=== PATIENT | male | born 1965 | race Caucasian/White ===

== ENCOUNTER → 2018-08-02 | Day surgery (SDC) | payer OTHER ==
[2018-07-31 11:03] LABS: BASOPHILS % 0.3 % (0.0-1.0); EOSINOPHILS # (AUTO) 0.1 (0.0-0.4); EOSINOPHILS % 1.2 % (0.0-6.0); HEMATOCRIT 53.6 % (38.2-49.6); HEMOGLOBIN 18.8 g/dL (14.0-18.0); LYMPHOCYTES % 9.7 % (18.0-39.1); MEAN CORPUSCULAR HEMOGLOBIN 32.1 pg (28-32); MEAN CORPUSCULAR HGB CONC 35.1 g/dL (31-35); MEAN CORPUSCULAR VOLUME 91.6 fL (81-99); MONOCYTES % 9.8 % (4.4-11.3); NEUTROPHILS # (AUTO) 7.7 (2.1-6.9); NEUTROPHILS % 78.8 % (38.7-80.0); PLATELET COUNT 186 x10e3/uL (140-360); RED BLOOD COUNT 5.85 x10e6/uL (4.3-5.7); RED CELL DISTRIBUTION WIDTH 12.8 % (11.7-14.4)
[2018-07-31 11:28] LABS: ALBUMIN 4.5 g/dL (3.5-5.0); ALBUMIN/GLOBULIN RATIO 1.3 (0.8-2.0); CALCIUM 10.3 mg/dL (8.4-10.2); CREATININE, SERUM 1.34 mg/dL (0.72-1.25)
[2018-08-02] VITALS (13 sets, daily range): BP systolic 99–146; BP diastolic 55–88
[~2018-08-02] VITALS: Ht 188 cm; Wt 97.5 kg
[~2018-08-02] MED LIST: ACETAMINOPHEN 325 MG TAB ONE; ACETAMINOPHEN 325 MG TAB PO ONE; ASPIR 8181 MG PO; ASPIRIN 325 MG TAB ONE; BIVALRIUDIN 250 MG/VIAL VIAL IV ONE; EPTIFIBATIDE 10 ML ONE; FENTANYL CITRATE/PF 100MCG/2 ML INJ ONE; HEPARIN SOD/SOD CHLORIDE 2,000 ML ONE; IOPAMIDOL 370 MG/ML 200 ML INFUS..BTL INJ ONE; LIDOCAINE HCL 2% LOCAL 20 ML VIAL ONE; MEPERIDINE HCL INJ 50 MG/ML INJ ONE; MIDAZOLAM HCL 2 MG/2 ML VIAL ONE; PROMETHAZINE HCL (IM) 25 MG/ML VIAL ONE; SODIUM CHLORIDE 0.9% 1000ML 1,000 ML ONE; SODIUM CHLORIDE 0.9% 50ML 50 ML ONE; TICAGRELOR 90 MG TABLET ONE; VERAPAMIL HCL 2.5 MG/ML 2 ML VIAL ONE
--- OUTSIDE RECORDS SUMMARY | 2018-08-02 06:16 | XMS REPORT | Clinical Summary ---
Author Author [facility] Address Unknown Phone Unavailable Care Team Providers Care Green Plumber Name Role Phone Asked, No Pcp PCP Unavailable Allergies Comments Active Allergy Reactions Severity Noted Date Ciprofloxacin GI 06/09/2017 Intolerance Medications End Date Status Medication Sig Dispensed Refills Start Date Active hydroCHLOROthiazide Take 25 mg by 0 (HYDRODIURIL) 25 MG mouth daily. tablet Active buPROPion XL (WELLBUTRIN 0 XL) 150 MG 24 hr tablet 9 Active testosterone cypionate INJECT 1 ML 3 (DEPOTESTOTERONE IN THE MUSCLE 8 CYPIONATE) 200 mg/mL ONCE EVERY 2 injection WEEKS Active Problems Not on file Encounters Care Team Description Date Type Specialty Clay Mccarthy MD Patellofemoral chondrosis of right knee (Primary Dx); Right knee pain, unspecified chronicity 04/03/2018 Office Visit Orthopedic Surgery Clay Mccarthy MD Biceps tendonitis on right (Primary Dx) 08/15/2017 Office Visit Orthopedic Surgery Clay Mccarthy MD Biceps tendonitis on right (Primary Dx) 08/02/2017 Office Visit Orthopedic Surgery after 08/01/2017 Social History Date Tobacco Use Types Packs/Day Years Used Never Smoker Alcohol Use Drinks/Week oz/Week Comments Yes maybe twice a month Sex Assigned at Date Recorded Not on file Industry Job Start Date Occupation Not on file Not on file Not on file Travel End Travel History Travel Start No recent travel history available. Last Filed Vital Signs Time Taken Vital Sign Reading - Blood Pressure - - Pulse - - Temperature - - Respiratory Rate - - Oxygen Saturation - - Inhaled Oxygen - Concentration 04/03/2018 3:37 PM [employer] Weight 97.5 kg (215 lb) 04/03/2018 3:37 PM [employer] Height 188 cm (6' 2") 04/03/2018 3:37 PM [employer] Body Mass Index 27.6 Plan of Treatment Health Maintenance Due Date Last Done Comments COLON CANCER SCREENING 12/28/2015 SHINGLES VACCINES (#1) 12/28/2015 INFLUENZA VACCINE 10/25/2018 Procedures Comments Procedure Name Priority Date/Time Associated Diagnosis XR KNEE 4+ VW RIGHT Routine 04/03/2018 Right knee pain, 3:50 PM [employer] unspecified chronicity CHG ULTRASONIC GUIDANCE, Routine 08/15/2017 Biceps tendonitis on INTRAOPERATIVE 3:00 PM CDT right ID INJECT TENDON Routine 08/15/2017 Biceps tendonitis on SHEATH/LIGAMENT 3:00 PM CDT right after 08/01/2017 Results * XR Knee 4+ Vw Right (04/03/2018 3:50 PM [employer]) Narrative Performed At [facility] Four views (standing bilateral weightbearing AP and 45 degree flexion PA, Merchant, and lateral views) of the right knee are obtained and reviewed today. The alignment appears normal. There is no significant narrowing or other degenerative change of the tibiofemoral or patellofemoral joint spaces.No fractures or loose bodies are seen. No abnormal soft tissue calcifications are seen. Performing Organization Address [facility]/State[facility] Phone Number [facility] [phone] [place] [address] * Injection tendon or ligament (08/15/2017 3:00 PM CDT) Narrative Performed At Clay Mccarthy MD 08/22/2017 12:13 PM Injection tendon or ligament Date/Time: 08/22/2017 12:10 PM Performed by: CLAY MCCARTHY Authorized by: CLAY MCCARTHY Consent: Consent obtained:Verbal Consent given by:Patient Risks discussed:Bleeding, infection, nerve damage and pain Alternatives discussed:No treatment and delayed treatment Pre-procedure details: Preparation: Patient was prepped and draped in usual sterile fashion Procedure details: Type of injection:Tendon sheath Location:Shoulder Shoulder location:R bicepsUltrasound Guided? yes Right side: Needle size: 27 G Right shoulder medications administered: 40 mg methylPREDNISolone acetate 40 mg/mL; 2 mL lidocaine 10 mg/mL (1 %) Post-procedure details: Patient tolerance of procedure:Tolerated well, no immediate complications after 08/01/2017 Insurance Payer Benefit Subscriber ID Type Phone Address Plan / Group [employer]IG[employer] CIGNA OPEN xxxxxxxxx HMO ACCESS/NET WORK [id number] [place] [address] ([place]) [place] [address]
--- NOTE | 2018-08-02 13:26 | NUR ---
1326pm Received s/p [facility] DR Duffy, RCA stent, Rt TR band approach.Received with oozing TR band technologist Bi and Sultana at bedside Ooze controlled , Received report from Andrew Mehta States Angiomax off. Left iv infusing NS well with Dial-a-flow at 100cchr NO s/s infiltration .TR band has 15cc air and intact. Abdomen soft and non tender denies necessity to defecate or urinate Bilateral femoral pulses present w/o s/s infiltration. HOB elevated and served diet Family at bedside reviewed POC and Md talked to family will initiate titration at 1430pm ds/rn
--- NOTE | 2018-08-02 14:30 | NUR ---
1430pm (15cc tr band) -2cc positive, 13cc No gross signs pain,pallor,pressure or dysrhythmia. 1445pm additional -2cc ,positive,11cc no oozing or or hematoma noted Family noted at bedside. ds/rn
--- NOTE | 2018-08-02 14:34 | Operative Report ---
DATE OF PROCEDURE: 08/02/2018 SURGEON: Orlin Duffy MD INDICATION: Coronary artery disease, abnormal stress test. PROCEDURES PERFORMED: 1. Left heart catheterization, selective coronary angiography. 2. PTCA and stent placement to the right posterior lateral artery. COMPLICATIONS: None. RECOMMENDATIONS: Aggressive medical therapy, dual antiplatelet therapy for at least 6 months. DESCRIPTION OF PROCEDURE: Access obtained in the right radial artery. A 5-Belarusian sheath was placed. Diagnostic coronary angiogram revealed 50% left main stenosis, 50% ostial circumflex stenosis. Left anterior descending artery diffuse 30% to 50% stenosis. Right coronary artery was dominant, large vessel, 50% mid stenosis, 50% right posterior descending artery stenosis, 99% stenosis of the right posterolateral artery with EMILEE-2 flow. A decision was made to intervene on the right posterior lateral artery. The patient received intravenous Angiomax, oral Brilinta and aspirin for anticoagulation. The right coronary artery was cannulated using a 5-Belarusian guiding catheter, short wire was advanced across the lesion for support, predilatation with a 2 mm balloon following which a single 2.25 x 12 mm [employer] Synergy stent was deployed at 14 atmospheres. Excellent end result less than 10% residual stenosis, EMILEE-3 flow. No complications. Wire and guide removed. TR band applied. The patient was discharged home following 6 hours observation in the hospital same day. Orlin Duffy MD KSB/MODL /[id number]
--- NOTE | 2018-08-02 15:00 | NUR ---
1500 Family remain at bedside NO gross signs pain pallor pressure and dysrhythmia. 1515p-2cc Positve 7cc No oozing noted 1530p-2cc Positve 5cc No oozing noted ds/rn
--- NOTE | 2018-08-02 17:36 | NUR ---
[address] Duffy received order Tylenol 650po for Padron given as ordered
--- NOTE | 2018-08-02 18:00 | NUR ---
1800 TR band titration completed no sign of oozing or hematoma. Coban 2x2 dressing with wrist splint in place aware of importance of safety restrictions and f/o care in two weeks. No gross signs of pain pallor pressure. Family fork truck driver here Escorted pt to car Iv was removed and coban dressing. No sign of infiltration. ds/rn
== END | disposition home or self-care (01) ==
LOC: CATH LAB 06:11 → EDSEX 08:00
PROVIDERS: ATTEND Internal Medicine Interventional Cardiology
DX: I25.118 Atherosclerotic heart disease of native coronary artery with other forms of angina pectoris (principal); R94.39 Abnormal result of other cardiovascular function study; Z01.812 Encounter for preprocedural laboratory examination; Z79.82 Long term (current) use of aspirin
CPT/HCPCS: 36415; 80053; 85025; 92928; 93458; C1769; C1874; C1887; J0583; J1327; J2001; J2175; J2250; J2550; J7030; Q9967; C1725